=== PATIENT | female | born 1970 | race Caucasian/White ===

== ENCOUNTER 2016-12-06 18:43 | Emergency (ER) | payer OTHER ==
[2016-12-06] MEDS ORDERED: ONDANSETRON 4MG/2ML VIAL (J2405) As Ordered ONE (19:27)
[2016-12-06] MEDS ORDERED: KETOROLAC 30 MG/ML VIAL (J1885) As Ordered ONE (19:27)
[2016-12-06 19:32] LABS: MEAN CORPUSCULAR HEMOGLOBIN 31.2 pg (27.0-33.0); MEAN CORPUSCULAR HGB CONC 35.3 g/dl (32.0-36.5); MEAN CORPUSCULAR VOLUME 88.4 fl (80.0-96.0); RED CELL DISTRIBUTION WIDTH 12.1 % (11.5-14.5); WHITE BLOOD COUNT 8.7 K/mm3 (4.0-10.0)
[2016-12-06 19:57] LABS: ALBUMIN 4.4 GM/DL (3.2-5.2); ALBUMIN/GLOBULIN RATIO 1.69 (1.00-1.93); ALKALINE PHOSPHATASE 87 U/L (45-117); ANION GAP 8 MEQ/L (8-16); AST/SGOT 21 U/L (15-37); BILIRUBIN,TOTAL 0.5 MG/DL (0.2-1.0); BLOOD UREA NITROGEN 11 MG/DL (7-18); CALCIUM LEVEL 8.7 MG/DL (8.5-10.1); CARBON DIOXIDE LEVEL 24 MEQ/L (21-32); CHLORIDE LEVEL 110 MEQ/L (98-107); CREATININE FOR GFR 0.71 MG/DL (0.55-1.02); GLOMERULAR FILTRATION RATE > 60.0 (>58); POTASSIUM SERUM 4.4 MEQ/L (3.5-5.1); SODIUM LEVEL 142 MEQ/L (136-145)
[2016-12-06 20:09] LABS: MICROSCOPIC INDICATED? MAN YES (NO)
[2016-12-06 20:11] LABS: RBC, URINE 30-40 /hpf (0-3)
[2016-12-06 20:12] LABS: BACTERIA, URINE NONE SEEN; HYALINE CAST, URINE NONE SEEN /lpf (0-1); MICROSCOPIC EXAM UNSPUN; SQUAMOUS EPITHELIAL CELL URINE SMALL AMOUNT /hpf (SMALL AMT)
[2016-12-06 20:49] LABS: ALT/SGPT 34 U/L (12-78); GLUCOSE, FASTING 117 MG/DL (70-105)
--- NOTE | 2016-12-06 21:00 | REPUSA ---
Clinical history: bleeding. Findings: Real-time transabdominal ultrasound images of the pelvis were obtained. An anteverted uteru s is noted, measuring 10.5 x 5.3 x 6.1 cm. The uterus demonstrates normal echotexture and echogenicit y. The endometrial stripe measures 10 mm and is within normal limits. The right ovary measures 2.9 x 1.9 x 1.8 cm. The left ovary measures 3.5 x 2.2 x 3.4 cm. There are two left ovarian cysts, the large st measuring 2.4 x 1.7 x 1.7 cm. No adnexal masses are seen. Color Doppler flow is seen within both o varies. There is no evidence of free fluid. Impression: Left ovarian cyst. Otherwise unremarkable ultrasound examination of the pelvis.
[2016-12-06] MEDS ORDERED: PHENAZOPYRIDINE 100 MG TAB As Ordered ONE (21:39)
[2016-12-06] MEDS ORDERED: NITROFURANTOIN (MACROBID) 100 MG CAP As Ordered ONE (21:39)
--- NOTE | 2016-12-06 21:52 | EDDOCDS ---
Physician Documentation [facility] Name: Ronda White Age: 46 yrs Sex: Female : 1970 Arrival Date: 12/06/2016 Time: 18:43 Bed I7 / 29 Private MD: Violeta Powers Disposition: 12/06/16 21:39 Discharged to Home/Self Care. Impression: Dysmenorrhea, unspecified, Other ovarian cysts - Left x 2, Urinary tract infection, site not specified. - Condition is Stable. - Discharge Instructions: Urinary Tract Infection, Iiqu-vp-Altv, Ovarian Cyst, Mvxj-bg-[id number], Dysmenorrhea, Vyiq-uq-Jgjf. - Prescriptions for Naprosyn 500 mg Oral Tablet - take 1 tablet by ORAL route 2 times per day take with food; 30 tablet. promethazine 25 mg Oral Tablet - take 1 tablet by ORAL route every 6 hours As needed; 12 tablet. Pyridium 200 mg Oral Tablet - take 1 tablet by ORAL route every 8 hours for 3 days; 9 tablet. Macrobid 100 mg Oral Capsule - take 100 milligram by ORAL route every 12 hours for 10 days; 20 capsule. - Referral List Call for Appointment, Medication Reconciliation, Local Pharmacy Hours form. - Follow up: Violeta Powers; When: 1 - 2 days; Reason: Recheck today's complaints, Continuance of care. Follow up: Leatha Spivey; When: Call to arrange an appointment; Reason: Further diagnostic work-up, Recheck today's complaints, Continuance of care. - Problem is new. - Symptoms have improved. Historical: - Allergies: Clindamycin; Codeine Sulfate; SULFA (SULFONAMIDES); - Home Meds: 1. actemera weekly 2. Zoloft 50 mg Oral tab 1 tab once daily 3. Prilosec 20 mg oral cpDR once daily 4. Topamax 200 mg oral tab 5. BuSpar Unknown Oral daily - PMHx: GERD; Migraines; Rheumatoid Arthritis; Depression; - PSHx: left ankle fusion; Tubal ligation; right arm; - Social history: Smoking status: Patient states former smoker of tobacco. No barriers to communication noted, The patient speaks fluent Turkish, Speaks appropriately for age. - Family history: Not pertinent. - : The pt / caregiver states he / she is not on anticoagulants. Home medication list is obtained from the patient. - Exposure Risk Screening:: None identified. 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 3 in. (160.02 cm); Pain 8/10; 20:04 BP 126 / 71 RA Supine; Pulse 65; af2 20:04 BP 149 / 81 RA Sitting; Pulse 81; af2 20:04 BP 158 / 87 Standing; Pulse 76; af2 21:47 BP 135 / 73 LA Sitting (auto/lg); Pulse 71; Resp 22; Temp 97.9; Pulse Ox 99% on R/A; bnb Pain 0/10; 18:45 Body Mass Index 33.66 (86.18 kg, 160.02 cm) sew MDM: 18:54 Orthostatic VS ordered. sd1 18:55 CBC Ordered. EDMS 18:55 Type & Screen Ordered. EDMS 18:57 IV Saline Lock ordered. ef1 18:57 NS 0.9% 1000 ml IV at bolus once ordered. ef1 18:58 Complete Comphrensive Metabolic Ordered. EDMS 18:58 Ondansetron 4 mg IVP once ordered. ef1 18:58 ketorolac 30 mg IVP once ordered. ef1 18:59 UCG by Nursing ordered. ef1 18:59 Urine Culture Ordered. EDMS 19:15 -US Pelvic Non-Ob Complete Ordered. EDMS 19:17 DUPLEX SCAN LIMITED (DOPPLER)+US Ordered. EDMS 20:03 URINALYSIS MANUAL Ordered. EDMS 20:36 URINALYSIS MANUAL Reviewed. ef1 20:36 MICROSCOPIC, URINE Reviewed. ef1 20:36 CBC Reviewed. ef1 20:36 Type & Screen Reviewed. ef1 20:40 Financial registration complete. zo 20:40 [facility] [place] Payment Agreement was scanned into [employer] and attached to record. zo 21:32 Complete Comphrensive Metabolic Reviewed. ef1 21:32 -US Pelvic Non-Ob Complete Reviewed. ef1 21:35 Phenazopyridine 200 mg PO once ordered. ef1 21:35 Nitrofurantoin 100 mg PO once ordered. ef1 Point of Care Testing: Urine : 19:52 hCG Reading: Negative; Control Reading: Positive; af2 Ranges: Administered Medications: 19:35 Drug: NS 0.9% 1000 ml [sodium chloride 0.9 % intravenous solution] Route: IV; Rate: af2 bolus; Site: right hand; 19:35 Drug: Ondansetron 4 mg [ondansetron HCl 2 mg/mL intravenous solution (2 mL)] Route: af2 IVP; Site: right hand; 19:35 Not Given (Patient Refused): ketorolac 30 mg IVP once af2 21:49 Not Given (Patient Refused): Phenazopyridine 200 mg PO once ck1 21:49 Not Given (Patient Refused): Nitrofurantoin 100 mg PO once ck1 Signatures: Dispatcher [employer] EDMS Skyla Colbert MD MD sd1 Jamal Sierra RN RN mlb1 Naty Pimentel RN RN ck1 Tere Dawn Erica PA-C PA-C ef1 Daxa Briggs RN RN af2 The chart was reviewed and I authenticate all verbal orders and agree with the evaluation and treatment provided.Corrections: (The following items were deleted from the chart) 19:00 18:55 HCG, QUALITATIVE+LAB ordered. EDMS EDMS 20:02 18:59 URINALYSIS+LAB ordered. EDMS EDMS Attachments: 20:40 [facility] Payment Agreement zo MTDD
--- NOTE | 2016-12-06 21:52 | EDDOCDS ---
Nurse's Notes [facility] Name: Ronda White Age: 46 yrs Sex: Female : 1970 Arrival Date: 12/06/2016 Time: 18:43 Bed I7 29 Private MD: Violeta Powers Diagnosis: Dysmenorrhea, unspecified;Other ovarian cysts-Left x 2;Urinary tract infection, site not specified Presentation: 12/06 18:51 Presenting complaint: Patient states: Heavy vaginal bleeding and cramping began at 0200 mlb1 this am. Risk factors: The patient reports no loss of conciousness prior to arrival. This patient has not had a hysterectomy. This patient has not begun menopause. Adult Sepsis Screening: The patient does not have new or worsening altered mentation. Patient's respiratory rate is less than 22. Systolic blood pressure is greater than 100. Patient has a qSOFA score of 0- Negative Sepsis Screen. Suicide/Homicide risk assessment- the patient denies having any suicidal and/or homicidal ideations and does not present with any other emotional, behavioral or mental health complaints. Status: Patient is not a ward service supervisor or dependent. Transition of care: patient was not received from another setting of care. 18:51 Acuity: SHERITA Level 3 mlb1 18:51 Method Of Arrival: Walkin/Carried/Asstd mlb1 Triage Assessment: 18:55 General: Appears distressed, Behavior is appropriate for age, cooperative. Pain: mlb1 Location: pelvis Pain currently is 7 out of 10 on a pain scale. At worst was 10 out of 10 on a pain scale. : Reports vaginal bleeding that is with clots heavy flow. 21:50 HIV screening NA for this visit Offered previously. 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 actemera weekly 2. Zoloft 50 mg Oral tab 1 tab once daily 3. Prilosec 20 mg oral cpDR once daily 4. Topamax 200 mg oral tab 5. BuSpar Unknown Oral daily - PMHx: GERD; Migraines; Rheumatoid Arthritis; Depression; - PSHx: left ankle fusion; Tubal ligation; right arm; - Social history: Smoking status: Patient states former smoker of tobacco. No barriers to communication noted, The patient speaks fluent Egyptian, Speaks appropriately for age. - Family history: Not pertinent. - : The pt / caregiver states he / she is not on anticoagulants. Home medication list is obtained from the patient. - Exposure Risk Screening:: None identified. Screenin:25 Screening information is obtained from the patient. Fall risk: No risks identified. af2 Assistance ADL's: requires no assistance with activities of daily living. Abuse/DV Screen: The patient / caregiver reports he/she is: not in a situation that causes fear, pain or injury. Nutritional screening: No deficits noted. Advance Directives: Currently, there is no health care proxy. home support is adequate. Assessment: 19:22 General: Appears uncomfortable, Behavior is crying. Pain: Location: pelvis Pain af2 currently is 8 out of 10 on a pain scale. : Last void at 19:23. Reports vaginal bleeding that is bright red heavy flow states that she is going through 6 tampons per hour. Derm: Skin is normal. 20:03 General: pt assisted to bathroom, provided with more pads and linens changed.. af2 21:12 General: Appears in no apparent distress, Behavior is cooperative, pt seated in upright af2 position, rr even and unlabored. ivf bolus completed at this time. pt continues to report bleeding.. 21:51 General: Appears in no apparent distress, comfortable, Behavior is appropriate for age, ck1 cooperative. Pain: Denies pain. Respiratory: Respiratory effort is unlabored, Respiratory pattern is regular, symmetrical. : Denies burning with urination, urinary frequency. Derm: Skin is normal. Vital Signs: 18:45 BP 145 / 78; Pulse 86; Resp 16; Temp 97.5(O); Pulse Ox 99% on R/A; Weight 86.18 kg; sew Height 5 ft. 3 in. (160.02 cm); Pain 8/10; 20:04 BP 126 / 71 RA Supine; Pulse 65; af2 20:04 BP 149 / 81 RA Sitting; Pulse 81; af2 20:04 BP 158 / 87 Standing; Pulse 76; af2 21:47 BP 135 / 73 LA Sitting (auto/lg); Pulse 71; Resp 22; Temp 97.9; Pulse Ox 99% on R/A; bnb Pain 0/10; 18:45 Body Mass Index 33.66 (86.18 kg, 160.02 cm) [facility] [place]: 18:45 Log In Time: December 06, 2016 at 18:42. sew 18:45 RN notified that patient meets Red Flag criteria. [facility] Course: 18:[address]yla [address]. sew 18:44 Patient moved to Waiting sew 18:45 Violeta Powers is Private Physician. sew 18:[address]yla [address]. sew 18:49 Patient moved to Pre RCE sew 18:51 Patient visited by Jamal Sierra, ARJUN. mlb1 18:51 Patient moved to I7 / mlb1 18:52 Triage Initiated mlb1 18:55 Patient visited by Jamal Sierra, ARJUN. mlb1 18:57 Chelsea Sorenson PA-C is [facility]. ef1 18:57 Skyla Colbert MD is Attending Physician. ef1 18:57 Patient visited by Chelsea Sorenson PA-C. ef1 19:22 Complete Comphrensive Metabolic Sent. af2 19:22 Type & Screen Sent. af2 19:22 CBC Sent. af2 19:24 The patient / caregiver is instructed regarding the plan of care and ED course. Patient af2 has correct armband on for positive identification. Placed in gown. 19:24 Inserted saline lock: 20 gauge in right hand and blood collected. The patient tolerated af2 the procedure well. 19:29 Patient visited by Chelsea Sroenson PA-C. ef1 19:35 Patient visited by Daxa Briggs RN. af2 19:35 Urine Culture Sent. af2 19:53 Patient visited by Daxa Briggs RN. af2 20:05 Patient visited by Daxa Briggs RN. af2 20:35 Patient visited by Chelsea Sorenson PA-C. ef1 20:40 [facility] [place] [place] Agreement was scanned into [employer] and attached to record. zo 21:04 -US Pelvic Non-Ob Complete Returned. EDMS 21:12 Patient visited by Daxa Briggs RN. af2 21:13 Patient visited by Daxa Briggs RN. af2 21:33 Patient visited by Chelsea Sorenson PA-C. ef1 21:39 Violeta Powers is Referral Physician. ef1 21:39 Leatha Spivey MD is Referral Physician. ef1 21:48 Patient visited by Violet Renae PCA. bnb 21:49 Discontinued lock intact, bleeding controlled, pressure dressing applied, No ck1 redness/swelling at site. No procedures done that require assistance. Administered Medications: 19:35 Drug: NS 0.9% 1000 ml [sodium chloride 0.9 % intravenous solution] Route: IV; Rate: af2 bolus; Site: right hand; 19:35 Drug: Ondansetron 4 mg [ondansetron HCl 2 mg/mL intravenous solution (2 mL)] Route: af2 IVP; Site: right hand; 19:35 Not Given (Patient Refused): ketorolac 30 mg IVP once af2 21:49 Not Given (Patient Refused): Phenazopyridine 200 mg PO once ck1 21:49 Not Given (Patient Refused): Nitrofurantoin 100 mg PO once ck1 Point of Care Testing: Urine : 19:52 hCG Reading: Negative; Control Reading: Positive; af2 Ranges: Order Results: Lab Order: CBC; SPEC'M 12/06/16 19:01 Test: WHITE BLOOD COUNT; Value: 8.7; Range: 4.0-10.0; Units: K/mm3; Status: F Test: RED BLOOD COUNT; Value: 4.09; Range: 4.00-5.40; Units: M/mm3; Status: F Test: HEMOGLOBIN; Value: 12.8; Range: 12.0-16.0; Units: g/dl; Status: F Test: HEMATOCRIT; Value: 36.1; Range: 36.0-47.0; Units: %; Status: F Test: MEAN CORPUSCULAR VOLUME; Value: 88.4; Range: 80.0-96.0; Units: fl; Status: F Test: MEAN CORPUSCULAR HEMOGLOBIN; Value: 31.2; Range: 27.0-33.0; Units: pg; Status: F Test: MEAN CORPUSCULAR HGB CONC; Value: 35.3; Range: 32.0-36.5; Units: g/dl; Status: F Test: RED CELL DISTRIBUTION WIDTH; Value: 12.1; Range: 11.5-14.5; Units: %; Status: F Test: PLATELET COUNT, AUTOMATED; Value: 285; Range: 150-450; Units: k/mm3; Status: F Lab Order: Type & Screen; SPEC'M 12/06/16 19:01 Test: BLOOD TYPE; Value: O POS; Status: F Test: AB SCREEN (INDIRECT ANGELICA)GEL; Value: NEGATIVE; Status: F Lab Order: Complete Comphrensive Metabolic; SPEC'M 12/06/16 19:01 Test: GLUCOSE, FASTING; Value: 117; Range: 70-105; Abnormal: Above high normal; Units: MG/DL; Status: F Test: BLOOD UREA NITROGEN; Value: 11; Range: 7-18; Units: MG/DL; Status: F Test: CREATININE FOR GFR; Value: 0.71; Range: 0.55-1.02; Units: MG/DL; Status: F Test: GLOMERULAR FILTRATION RATE; Value: > 60.0; Range: >58; Status: F Test: SODIUM LEVEL; Value: 142; Range: 136-145; Units: MEQ/L; Status: F Test: POTASSIUM SERUM; Value: 4.4; Range: 3.5-5.1; Units: MEQ/L; Status: F Test: CHLORIDE LEVEL; Value: 110; Range: 98-107; Abnormal: Above high normal; Units: MEQ/L; Status: F Test: CARBON DIOXIDE LEVEL; Value: 24; Range: 21-32; Units: MEQ/L; Status: F Test: ANION GAP; Value: 8; Range: 8-16; Units: MEQ/L; Status: F Test: CALCIUM LEVEL; Value: 8.7; Range: 8.5-10.1; Units: MG/DL; Status: F Test: AST/SGOT; Value: 21; Range: 15-37; Units: U/L; Status: F Test: ALT/SGPT; Value: 34; Range: 12-78; Units: U/L; Status: F Test: ALKALINE PHOSPHATASE; Value: 87; Range: 45-117; Units: U/L; Status: F Test: BILIRUBIN,TOTAL; Value: 0.5; Range: 0.2-1.0; Units: MG/DL; Status: F Test: TOTAL PROTEIN; Value: 7.0; Range: 6.4-8.2; Units: GM/DL; Status: F Test: ALBUMIN; Value: 4.4; Range: 3.2-5.2; Units: GM/DL; Status: F Test: ALBUMIN/GLOBULIN RATIO; Value: 1.69; Range: 1.00-1.93; Status: F Test Note: ; Testing was performed on a lipemic specimen. Suggest recollection of a FASTING specimen for more accurate test results. Lab Order: URINALYSIS MANUAL; SPEC'M 12/06/16 19:01 Test: APPEARANCE, URINE MANUAL; Value: CLOUDY; Range: CLEAR; Abnormal: Above high normal; Status: F Test: COLOR, URINE MANUAL; Value: RED; Range: YELLOW; Abnormal: Above high normal; Status: F Test: PH,URINE MAN; Value: 5.0; Range: 5.0 - 9.0; Units: UNITS; Status: F Test: SPECIFIC GRAVITY,URINE MANUAL; Value: 1.030; Range: 1.002-1.035; Status: F Test: PROTEIN, URINE MANUAL; Value: 1+; Range: NEGATIVE; Abnormal: Above high normal; Units: mg/dL; Status: F Test: GLUCOSE, URINE (UA) MANUAL; Value: NEGATIVE; Range: NEGATIVE; Units: mg/dL; Status: F Test: KETONE, URINE MANUAL; Value: NEGATIVE; Range: NEGATIVE; Units: mg/dL; Status: F Test: UROBILINOGEN, URINE MANUAL; Value: NORMAL; Range: NORMAL; Units: mg/dl; Status: F Test: BILIRUBIN, URINE MANUAL; Value: NEGATIVE; Range: NEGATIVE; Status: F Test: NITRITE, URINE MANUAL; Value: NEGATIVE; Range: NEGATIVE; Status: F Test: LEUKOCYTE ESTERASE, URINE MAN; Value: POSITIVE; Range: NEGATIVE; Abnormal: Above high normal; Status: F Test: BLOOD URINE MANUAL; Value: POSITIVE; Range: NEGATIVE; Abnormal: Above high normal; Status: F Lab Order: MICROSCOPIC, URINE; SPEC'M 12/06/16 19:01 Test: WBC, URINE; Value: 3-5; Range: 0-3; Abnormal: Above high normal; Units: /hpf; Status: F Test: RBC, URINE; Value: 30-40; Range: 0-3; Abnormal: Above high normal; Units: /hpf; Status: F Test: SQUAMOUS EPITHELIAL CELL URINE; Value: SMALL AMOUNT; Range: SMALL AMT; Units: /hpf; Status: F Test: BACTERIA, URINE; Value: NONE SEEN; Range: NONE; Status: F Test: HYALINE CAST, URINE; Value: NONE SEEN; Range: 0-1; Units: /lpf; Status: F Test: MICROSCOPIC EXAM; Status: I Test: MUCUS, URINE; Value: SMALL AMOUNT; Range: NEGATIVE; Abnormal: Above high normal; Status: F Test: MICROSCOPIC EXAM; Value: UNSPUN; Status: F Radiology Order: -US Pelvic Non-Ob Complete Test: -US Pelvic Non-Ob Complete REASON FOR EXAMINATION: Adnexal Pain r/o Torsion; ; Clinical history: bleeding.; Findings: Real-time transabdominal ultrasound images of the pelvis were obtained. An anteverted uteru; s is noted, measuring 10.5 x 5.3 x 6.1 cm. The uterus demonstrates normal echotexture and echogenicit; y. The endometrial stripe measures 10 mm and is within normal limits. The right ovary measures 2.9 x; 1.9 x 1.8 cm. The left ovary measures 3.5 x 2.2 x 3.4 cm. There are two left ovarian cysts, the large; st measuring 2.4 x 1.7 x 1.7 cm. No adnexal masses are seen. Color Doppler flow is seen within both o; varies. There is no evidence of free fluid.; Impression: Left ovarian cyst. Otherwise unremarkable ultrasound examination of the pelvis.; ; Outcome: 21:39 Discharge ordered by Provider. ef1 21:50 Discharge Assessment: Patient awake, alert and oriented x 3. No cognitive and/or ck1 functional deficits noted. Patient verbalized understanding of disposition instructions. patient administered narcotics - no. The following High Risk Discharge criteria are identified: None. Discharged to home ambulatory, with family. Condition: stable. Discharge instructions given to patient, Instructed on discharge instructions, follow up and referral plans. medication usage, Demonstrated understanding of instructions, medications, Pt was receptive of discharge instructions/ teaching. Prescriptions given X 4. Ultrasound Study completed. Property :Personal belongings accompany Pt. 21:51 Patient left the ED. ck1 Signatures: Dispatcher [facility] Jamal Sierra RN RN mlb1 Naty Pimentel RN RN ck1 Tere Dawn Erica, PA-C PA-C ef1 Skyla aWy AmberRN RN af2 Violet Renae, VP PRODUCT MANAGEMENT VP PRODUCT MANAGEMENT bnb Corrections: (The following items were deleted from the chart) 20:02 19:35 URINALYSIS+LAB sent. af2 EDMS MTDD
--- NOTE | 2016-12-08 22:53 | EDDOCDS ---
Physician Documentation [facility] Name: Ronda White Age: 46 yrs Sex: Female : 1970 Arrival Date: 12/06/2016 Time: 18:43 Bed I7 / 29 Private MD: Violeta Powers Disposition: 12/06/16 21:39 Discharged to Home/Self Care. Impression: Dysmenorrhea, unspecified, Other ovarian cysts - Left x 2, Urinary tract infection, site not specified. - Condition is Stable. - Discharge Instructions: Urinary Tract Infection, Qvnp-ua-[id number], Ovarian Cyst, Evgo-tn-Pbtg, Dysmenorrhea, Xqfy-pl-Ilcp. - Prescriptions for Naprosyn 500 mg Oral Tablet - take 1 tablet by ORAL route 2 times per day take with food; 30 tablet. promethazine 25 mg Oral Tablet - take 1 tablet by ORAL route every 6 hours As needed; 12 tablet. Pyridium 200 mg Oral Tablet - take 1 tablet by ORAL route every 8 hours for 3 days; 9 tablet. Macrobid 100 mg Oral Capsule - take 100 milligram by ORAL route every 12 hours for 10 days; 20 capsule. - Referral List Call for Appointment, Medication Reconciliation, Local Pharmacy Hours form. - Follow up: Violeta Powers; When: 1 - 2 days; Reason: Recheck today's complaints, Continuance of care. Follow up: Leatha Spivey; When: Call to arrange an appointment; Reason: Further diagnostic work-up, Recheck today's complaints, Continuance of care. - Problem is new. - Symptoms have improved. Historical: - Allergies: Clindamycin; Codeine Sulfate; SULFA (SULFONAMIDES); - Home Meds: 1. actemera weekly 2. Zoloft 50 mg Oral tab 1 tab once daily 3. Prilosec 20 mg oral cpDR once daily 4. Topamax 200 mg oral tab 5. BuSpar Unknown Oral daily - PMHx: GERD; Migraines; Rheumatoid Arthritis; Depression; - PSHx: left ankle fusion; Tubal ligation; right arm; - Social history: Smoking status: Patient states former smoker of tobacco. No barriers to communication noted, The patient speaks fluent Frisian, Speaks appropriately for age. - Family history: Not pertinent. - : The pt / caregiver states he / she is not on anticoagulants. Home medication list is obtained from the patient. - Exposure Risk Screening:: None identified. 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 3 in. (160.02 cm); Pain 8/10; 20:04 BP 126 / 71 RA Supine; Pulse 65; af2 20:04 BP 149 / 81 RA Sitting; Pulse 81; af2 20:04 BP 158 / 87 Standing; Pulse 76; af2 21:47 BP 135 / 73 LA Sitting (auto/lg); Pulse 71; Resp 22; Temp 97.9; Pulse Ox 99% on R/A; bnb Pain 0/10; 18:45 Body Mass Index 33.66 (86.18 kg, 160.02 cm) sew MDM: 18:54 Orthostatic VS ordered. sd1 18:55 CBC Ordered. EDMS 18:55 Type & Screen Ordered. EDMS 18:57 IV Saline Lock ordered. ef1 18:57 NS 0.9% 1000 ml IV at bolus once ordered. ef1 18:58 Complete Comphrensive Metabolic Ordered. EDMS 18:58 Ondansetron 4 mg IVP once ordered. ef1 18:58 ketorolac 30 mg IVP once ordered. ef1 18:59 UCG by Nursing ordered. ef1 18:59 Urine Culture Ordered. EDMS 19:15 -US Pelvic Non-Ob Complete Ordered. EDMS 19:17 DUPLEX SCAN LIMITED (DOPPLER)+US Ordered. EDMS 20:03 URINALYSIS MANUAL Ordered. EDMS 20:36 URINALYSIS MANUAL Reviewed. ef1 20:36 MICROSCOPIC, URINE Reviewed. ef1 20:36 CBC Reviewed. ef1 20:36 Type & Screen Reviewed. ef1 20:40 Financial registration complete. zo 20:40 [facility] [place] Payment Agreement was scanned into [employer] and attached to record. zo 21:32 Complete Comphrensive Metabolic Reviewed. ef1 21:32 -US Pelvic Non-Ob Complete Reviewed. ef1 21:35 Phenazopyridine 200 mg PO once ordered. ef1 21:35 Nitrofurantoin 100 mg PO once ordered. ef1 12/07 11:13 T-Sheet-- Draft Copy was scanned into [employer] and attached to record. gb 11:14 Radiology Report was scanned into [employer] and attached to record. gb Point of Care Testing: Urine : 12/06 19:52 hCG Reading: Negative; Control Reading: Positive; af2 Ranges: Administered Medications: 19:35 Drug: NS 0.9% 1000 ml [sodium chloride 0.9 % intravenous solution] Route: IV; Rate: af2 bolus; Site: right hand; 19:35 Drug: Ondansetron 4 mg [ondansetron HCl 2 mg/mL intravenous solution (2 mL)] Route: af2 IVP; Site: right hand; 19:35 Not Given (Patient Refused): ketorolac 30 mg IVP once af2 21:49 Not Given (Patient Refused): Phenazopyridine 200 mg PO once ck1 21:49 Not Given (Patient Refused): Nitrofurantoin 100 mg PO once ck1 Signatures: Dispatcher [employer] EDMS Skyla Colbert MD MD sd1 Latanya Rose, Reg Reg Jamal Gates, RN RN mlb1 Naty Pimentel RN RN ck1 Tere Dawn Erica PAHuy PA-C ef1 Daxa Briggs,RN RN af2 The chart was reviewed and I authenticate all verbal orders and agree with the evaluation and treatment provided.Corrections: (The following items were deleted from the chart) 19:00 18:55 HCG, QUALITATIVE+LAB ordered. EDMS EDMS 20:02 18:59 URINALYSIS+LAB ordered. EDMS EDMS Attachments: 20:40 [facility] [place] Payment Agreement zo 12/07 11:13 T-Sheet-- Draft Copy gb Chart Complete MTDD
--- NOTE | 2016-12-08 22:53 | EDDOCDS ---
Physician Documentation [facility] Name: Ronda White Age: 46 yrs Sex: Female : 1970 Arrival Date: 12/06/2016 Time: 18:43 Bed I7 / 29 Private MD: Violeta Powers Disposition: 12/06/16 21:39 Discharged to Home/Self Care. Impression: Dysmenorrhea, unspecified, Other ovarian cysts - Left x 2, Urinary tract infection, site not specified. - Condition is Stable. - Discharge Instructions: Urinary Tract Infection, [id number]-kv-[id number], Ovarian Cyst, [id number], Dysmenorrhea, [id number]. - Prescriptions for Naprosyn 500 mg Oral Tablet - take 1 tablet by ORAL route 2 times per day take with food; 30 tablet. promethazine 25 mg Oral Tablet - take 1 tablet by ORAL route every 6 hours As needed; 12 tablet. Pyridium 200 mg Oral Tablet - take 1 tablet by ORAL route every 8 hours for 3 days; 9 tablet. Macrobid 100 mg Oral Capsule - take 100 milligram by ORAL route every 12 hours for 10 days; 20 capsule. - Referral List Call for Appointment, Medication Reconciliation, Local Pharmacy Hours form. - Follow up: Violeta Powers; When: 1 - 2 days; Reason: Recheck today's complaints, Continuance of care. Follow up: Leatha Spivey; When: Call to arrange an appointment; Reason: Further diagnostic work-up, Recheck today's complaints, Continuance of care. - Problem is new. - Symptoms have improved. Historical: - Allergies: Clindamycin; Codeine Sulfate; SULFA (SULFONAMIDES); - Home Meds: 1. actemera weekly 2. Zoloft 50 mg Oral tab 1 tab once daily 3. Prilosec 20 mg oral cpDR once daily 4. Topamax 200 mg oral tab 5. BuSpar Unknown Oral daily - PMHx: GERD; Migraines; Rheumatoid Arthritis; Depression; - PSHx: left ankle fusion; Tubal ligation; right arm; - Social history: Smoking status: Patient states former smoker of tobacco. No barriers to communication noted, The patient speaks fluent Czech, Speaks appropriately for age. - Family history: Not pertinent. - : The pt / caregiver states he / she is not on anticoagulants. Home medication list is obtained from the patient. - Exposure Risk Screening:: None identified. 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 3 in. (160.02 cm); Pain 8/10; 20:04 BP 126 / 71 RA Supine; Pulse 65; af2 20:04 BP 149 / 81 RA Sitting; Pulse 81; af2 20:04 BP 158 / 87 Standing; Pulse 76; af2 21:47 BP 135 / 73 LA Sitting (auto/lg); Pulse 71; Resp 22; Temp 97.9; Pulse Ox 99% on R/A; bnb Pain 0/10; 18:45 Body Mass Index 33.66 (86.18 kg, 160.02 cm) sew MDM: 18:54 Orthostatic VS ordered. sd1 18:55 CBC Ordered. EDMS 18:55 Type & Screen Ordered. EDMS 18:57 IV Saline Lock ordered. ef1 18:57 NS 0.9% 1000 ml IV at bolus once ordered. ef1 18:58 Complete Comphrensive Metabolic Ordered. EDMS 18:58 Ondansetron 4 mg IVP once ordered. ef1 18:58 ketorolac 30 mg IVP once ordered. ef1 18:59 UCG by Nursing ordered. ef1 18:59 Urine Culture Ordered. EDMS 19:15 -US Pelvic Non-Ob Complete Ordered. EDMS 19:17 DUPLEX SCAN LIMITED (DOPPLER)+US Ordered. EDMS 20:03 URINALYSIS MANUAL Ordered. EDMS 20:36 URINALYSIS MANUAL Reviewed. ef1 20:36 MICROSCOPIC, URINE Reviewed. ef1 20:36 CBC Reviewed. ef1 20:36 Type & Screen Reviewed. ef1 20:40 Financial registration complete. zo 20:40 [facility] Payment Agreement was scanned into [employer] and attached to record. zo 21:32 Complete Comphrensive Metabolic Reviewed. ef1 21:32 -US Pelvic Non-Ob Complete Reviewed. ef1 21:35 Phenazopyridine 200 mg PO once ordered. ef1 21:35 Nitrofurantoin 100 mg PO once ordered. ef1 12/07 11:13 T-Sheet-- Draft Copy was scanned into [employer] and attached to record. gb 11:14 Radiology Report was scanned into [employer] and attached to record. gb Point of Care Testing: Urine : 12/06 19:52 hCG Reading: Negative; Control Reading: Positive; af2 Ranges: Administered Medications: 19:35 Drug: NS 0.9% 1000 ml [sodium chloride 0.9 % intravenous solution] Route: IV; Rate: af2 bolus; Site: right hand; 19:35 Drug: Ondansetron 4 mg [ondansetron HCl 2 mg/mL intravenous solution (2 mL)] Route: af2 IVP; Site: right hand; 19:35 Not Given (Patient Refused): ketorolac 30 mg IVP once af2 21:49 Not Given (Patient Refused): Phenazopyridine 200 mg PO once ck1 21:49 Not Given (Patient Refused): Nitrofurantoin 100 mg PO once ck1 Signatures: Dispatcher [employer] EDMS Skyla Colbert MD MD sd1 Latanya Rose, Reg Reg Jamal Gates, RN RN mlb1 Naty Pimentel RN RN ck1 Tere Dawn Erica PAHuy PA-C ef1 Daxa Briggs,RN RN af2 The chart was reviewed and I authenticate all verbal orders and agree with the evaluation and treatment provided.Corrections: (The following items were deleted from the chart) 19:00 18:55 HCG, QUALITATIVE+LAB ordered. EDMS EDMS 20:02 18:59 URINALYSIS+LAB ordered. EDMS EDMS Attachments: 20:40 [facility] Payment Agreement zo 12/07 11:13 T-Sheet-- Draft Copy gb Chart Complete MTDD
--- NOTE | 2016-12-08 22:53 | EDDOCDS ---
Nurse's Notes [facility] Name: Ronda White Age: 46 yrs Sex: Female : 1970 Arrival Date: 12/06/2016 Time: 18:43 Bed I7 29 Private MD: Violeta Powers Diagnosis: Dysmenorrhea, unspecified;Other ovarian cysts-Left x 2;Urinary tract infection, site not specified Presentation: 12/06 18:51 Presenting complaint: Patient states: Heavy vaginal bleeding and cramping began at 0200 mlb1 this am. Risk factors: The patient reports no loss of conciousness prior to arrival. This patient has not had a hysterectomy. This patient has not begun menopause. Adult Sepsis Screening: The patient does not have new or worsening altered mentation. Patient's respiratory rate is less than 22. Systolic blood pressure is greater than 100. Patient has a qSOFA score of 0- Negative Sepsis Screen. Suicide/Homicide risk assessment- the patient denies having any suicidal and/or homicidal ideations and does not present with any other emotional, behavioral or mental health complaints. 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 Transition of care: patient was not received from another setting of care. 18:51 Acuity: SHERITA Level 3 mlb1 18:51 Method Of Arrival: Walkin/Carried/Asstd mlb1 Triage Assessment: 18:55 General: Appears distressed, Behavior is appropriate for age, cooperative. Pain: mlb1 Location: pelvis Pain currently is 7 out of 10 on a pain scale. At worst was 10 out of 10 on a pain scale. : Reports vaginal bleeding that is with clots heavy flow. 21:50 HIV screening NA for this visit Offered previously. 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 actemera weekly 2. Zoloft 50 mg Oral tab 1 tab once daily 3. Prilosec 20 mg oral cpDR once daily 4. Topamax 200 mg oral tab 5. BuSpar Unknown Oral daily - PMHx: GERD; Migraines; Rheumatoid Arthritis; Depression; - PSHx: left ankle fusion; Tubal ligation; right arm; - Social history: Smoking status: Patient states former smoker of tobacco. No barriers to communication noted, The patient speaks fluent [place], Speaks appropriately for age. - Family history: Not pertinent. - : The pt / caregiver states he / she is not on anticoagulants. Home medication list is obtained from the patient. - Exposure Risk Screening:: None identified. Screenin:25 Screening information is obtained from the patient. Fall risk: No risks identified. af2 Assistance ADL's: requires no assistance with activities of daily living. Abuse/DV Screen: The patient / caregiver reports he/she is: not in a situation that causes fear, pain or injury. Nutritional screening: No deficits noted. Advance Directives: Currently, there is no health care proxy. home support is adequate. Assessment: 19:22 General: Appears uncomfortable, Behavior is crying. Pain: Location: pelvis Pain af2 currently is 8 out of 10 on a pain scale. : Last void at 19:23. Reports vaginal bleeding that is bright red heavy flow states that she is going through 6 tampons per hour. Derm: Skin is normal. 20:03 General: pt assisted to bathroom, provided with more pads and linens changed.. af2 21:12 General: Appears in no apparent distress, Behavior is cooperative, pt seated in upright af2 position, rr even and unlabored. ivf bolus completed at this time. pt continues to report bleeding.. 21:51 General: Appears in no apparent distress, comfortable, Behavior is appropriate for age, ck1 cooperative. Pain: Denies pain. Respiratory: Respiratory effort is unlabored, Respiratory pattern is regular, symmetrical. : Denies burning with urination, urinary frequency. Derm: Skin is normal. Vital Signs: 18:45 BP 145 / 78; Pulse 86; Resp 16; Temp 97.5(O); Pulse Ox 99% on R/A; Weight 86.18 kg; sew Height 5 ft. 3 in. (160.02 cm); Pain 8/10; 20:04 BP 126 / 71 RA Supine; Pulse 65; af2 20:04 BP 149 / 81 RA Sitting; Pulse 81; af2 20:04 BP 158 / 87 Standing; Pulse 76; af2 21:47 BP 135 / 73 LA Sitting (auto/lg); Pulse 71; Resp 22; Temp 97.9; Pulse Ox 99% on R/A; bnb Pain 0/10; 18:45 Body Mass Index 33.66 (86.18 kg, 160.02 cm) [facility] Vitals: 18:45 Log In Time: December 06, 2016 at 18:42. sew 18:45 RN notified that patient meets Red Flag criteria. [facility] ED Course: 18:[address]yla [address]. sew 18:44 Patient moved to Waiting sew 18:45 Violeta Powers is Private Physician. sew 18:[address]yla [address]. sew 18:49 Patient moved to Pre RCE sew 18:51 Patient visited by Jamal Sierra, ARJUN. mlb1 18:51 Patient moved to I7 / mlb1 18:52 Triage Initiated mlb1 18:55 Patient visited by aJmal Sierra, ARJUN. mlb1 18:57 [facility] ef1 18:57 Skyla Colbert MD is Attending Physician. ef1 18:57 Patient visited by Chelsea Sorenson PA-C. ef1 19:22 Complete Comphrensive Metabolic Sent. af2 19:22 Type & Screen Sent. af2 19:22 CBC Sent. af2 19:24 The patient / caregiver is instructed regarding the plan of care and ED course. Patient af2 has correct armband on for positive identification. Placed in gown. 19:24 Inserted saline lock: 20 gauge in right hand and blood collected. The patient tolerated af2 the procedure well. 19:29 Patient visited by Chelsea Sorenson PA-C. ef1 19:35 Patient visited by Daxa Briggs RN. af2 19:35 Urine Culture Sent. af2 19:53 Patient visited by Daxa Briggs RN. af2 20:05 Patient visited by Daxa Briggs RN. af2 20:35 Patient visited by Chelsea Sorenson PA-C. ef1 20:40 [facility] Payment Agreement was scanned into [employer] and attached to record. zo 21:04 -US Pelvic Non-Ob Complete Returned. EDMS 21:12 Patient visited by Daxa Briggs RN. af2 21:13 Patient visited by Daxa Briggs RN. af2 21:33 Patient visited by Chelsea Sorenson PA-C. ef1 21:39 Violeta Powers is Referral Physician. ef1 21:39 Leatha Spivey MD is Referral Physician. ef1 21:48 Patient visited by Violet Renae PCA. bnb 21:49 Discontinued lock intact, bleeding controlled, pressure dressing applied, No ck1 redness/swelling at site. No procedures done that require assistance. 12/07 11:13 T-Sheet-- Draft Copy was scanned into [employer] and attached to record. gb 11:14 Radiology Report was scanned into [employer] and attached to record. gb Administered Medications: 12/06 19:35 Drug: NS 0.9% 1000 ml [sodium chloride 0.9 % intravenous solution] Route: IV; Rate: af2 bolus; Site: right hand; 19:35 Drug: Ondansetron 4 mg [ondansetron HCl 2 mg/mL intravenous solution (2 mL)] Route: af2 IVP; Site: right hand; 19:35 Not Given (Patient Refused): ketorolac 30 mg IVP once af2 21:49 Not Given (Patient Refused): Phenazopyridine 200 mg PO once ck1 21:49 Not Given (Patient Refused): Nitrofurantoin 100 mg PO once ck1 Point of Care Testing: Urine : 19:52 hCG Reading: Negative; Control Reading: Positive; af2 Ranges: Order Results: Lab Order: CBC; SPEC'M 12/06/16 19:01 Test: WHITE BLOOD COUNT; Value: 8.7; Range: 4.0-10.0; Units: K/mm3; Status: F Test: RED BLOOD COUNT; Value: 4.09; Range: 4.00-5.40; Units: M/mm3; Status: F Test: HEMOGLOBIN; Value: 12.8; Range: 12.0-16.0; Units: g/dl; Status: F Test: HEMATOCRIT; Value: 36.1; Range: 36.0-47.0; Units: %; Status: F Test: MEAN CORPUSCULAR VOLUME; Value: 88.4; Range: 80.0-96.0; Units: fl; Status: F Test: MEAN CORPUSCULAR HEMOGLOBIN; Value: 31.2; Range: 27.0-33.0; Units: pg; Status: F Test: MEAN CORPUSCULAR HGB CONC; Value: 35.3; Range: 32.0-36.5; Units: g/dl; Status: F Test: RED CELL DISTRIBUTION WIDTH; Value: 12.1; Range: 11.5-14.5; Units: %; Status: F Test: PLATELET COUNT, AUTOMATED; Value: 285; Range: 150-450; Units: k/mm3; Status: F Lab Order: Type & Screen; SPEC'M 12/06/16 19: Test: BLOOD TYPE; Value: O POS; Status: F Test: AB SCREEN (INDIRECT ANGELICA)GEL; Value: NEGATIVE; Status: F Lab Order: Complete Comphrensive Metabolic; SPEC'M 12/06/16 19: Test: GLUCOSE, FASTING; Value: 117; Range: 70-105; Abnormal: Above high normal; Units: MG/DL; Status: F Test: BLOOD UREA NITROGEN; Value: 11; Range: 7-18; Units: MG/DL; Status: F Test: CREATININE FOR GFR; Value: 0.71; Range: 0.55-1.02; Units: MG/DL; Status: F Test: GLOMERULAR FILTRATION RATE; Value: > 60.0; Range: >58; Status: F Test: SODIUM LEVEL; Value: 142; Range: 136-145; Units: MEQ/L; Status: F Test: POTASSIUM SERUM; Value: 4.4; Range: 3.5-5.1; Units: MEQ/L; Status: F Test: CHLORIDE LEVEL; Value: 110; Range: 98-107; Abnormal: Above high normal; Units: MEQ/L; Status: F Test: CARBON DIOXIDE LEVEL; Value: 24; Range: 21-32; Units: MEQ/L; Status: F Test: ANION GAP; Value: 8; Range: 8-16; Units: MEQ/L; Status: F Test: CALCIUM LEVEL; Value: 8.7; Range: 8.5-10.1; Units: MG/DL; Status: F Test: AST/SGOT; Value: 21; Range: 15-37; Units: U/L; Status: F Test: ALT/SGPT; Value: 34; Range: 12-78; Units: U/L; Status: F Test: ALKALINE PHOSPHATASE; Value: 87; Range: 45-117; Units: U/L; Status: F Test: BILIRUBIN,TOTAL; Value: 0.5; Range: 0.2-1.0; Units: MG/DL; Status: F Test: TOTAL PROTEIN; Value: 7.0; Range: 6.4-8.2; Units: GM/DL; Status: F Test: ALBUMIN; Value: 4.4; Range: 3.2-5.2; Units: GM/DL; Status: F Test: ALBUMIN/GLOBULIN RATIO; Value: 1.69; Range: 1.00-1.93; Status: F Test Note: ; Testing was performed on a lipemic specimen. Suggest recollection of a FASTING specimen for more accurate test results. Lab Order: Urine Culture; SPEC'M 12/06/16 19: Test: URINE CULTURE; Value: URINE CULTURE RESULT NO GROWTH; Status: F Lab Order: URINALYSIS MANUAL; SPEC'M 12/06/16 19: Test: APPEARANCE, URINE MANUAL; Value: CLOUDY; Range: CLEAR; Abnormal: Above high normal; Status: F Test: COLOR, URINE MANUAL; Value: RED; Range: YELLOW; Abnormal: Above high normal; Status: F Test: PH,URINE MAN; Value: 5.0; Range: 5.0 - 9.0; Units: UNITS; Status: F Test: SPECIFIC GRAVITY,URINE MANUAL; Value: 1.030; Range: 1.002-1.035; Status: F Test: PROTEIN, URINE MANUAL; Value: 1+; Range: NEGATIVE; Abnormal: Above high normal; Units: mg/dL; Status: F Test: GLUCOSE, URINE (UA) MANUAL; Value: NEGATIVE; Range: NEGATIVE; Units: mg/dL; Status: F Test: KETONE, URINE MANUAL; Value: NEGATIVE; Range: NEGATIVE; Units: mg/dL; Status: F Test: UROBILINOGEN, URINE MANUAL; Value: NORMAL; Range: NORMAL; Units: mg/dl; Status: F Test: BILIRUBIN, URINE MANUAL; Value: NEGATIVE; Range: NEGATIVE; Status: F Test: NITRITE, URINE MANUAL; Value: NEGATIVE; Range: NEGATIVE; Status: F Test: LEUKOCYTE ESTERASE, URINE MAN; Value: POSITIVE; Range: NEGATIVE; Abnormal: Above high normal; Status: F Test: BLOOD URINE MANUAL; Value: POSITIVE; Range: NEGATIVE; Abnormal: Above high normal; Status: F Lab Order: MICROSCOPIC, URINE; SPEC'M 12/06/16 19: Test: WBC, URINE; Value: 3-5; Range: 0-3; Abnormal: Above high normal; Units: /hpf; Status: F Test: RBC, URINE; Value: 30-40; Range: 0-3; Abnormal: Above high normal; Units: /hpf; Status: F Test: SQUAMOUS EPITHELIAL CELL URINE; Value: SMALL AMOUNT; Range: SMALL AMT; Units: /hpf; Status: F Test: BACTERIA, URINE; Value: NONE SEEN; Range: NONE; Status: F Test: HYALINE CAST, URINE; Value: NONE SEEN; Range: 0-1; Units: /lpf; Status: F Test: MICROSCOPIC EXAM; Status: I Test: MUCUS, URINE; Value: SMALL AMOUNT; Range: NEGATIVE; Abnormal: Above high normal; Status: F Test: MICROSCOPIC EXAM; Value: UNSPUN; Status: F Radiology Order: -US Pelvic Non-Ob Complete Test: -US Pelvic Non-Ob Complete REASON FOR EXAMINATION: Adnexal Pain r/o Torsion; ; Clinical history: bleeding.; Findings: Real-time transabdominal ultrasound images of the pelvis were obtained. An anteverted uteru; s is noted, measuring 10.5 x 5.3 x 6.1 cm. The uterus demonstrates normal echotexture and echogenicit; y. The endometrial stripe measures 10 mm and is within normal limits. The right ovary measures 2.9 x; 1.9 x 1.8 cm. The left ovary measures 3.5 x 2.2 x 3.4 cm. There are two left ovarian cysts, the large; st measuring 2.4 x 1.7 x 1.7 cm. No adnexal masses are seen. Color Doppler flow is seen within both o; varies. There is no evidence of free fluid.; Impression: Left ovarian cyst. Otherwise unremarkable ultrasound examination of the pelvis.; ; Outcome: 21:39 Discharge ordered by Provider. ef1 21:50 Discharge Assessment: Patient awake, alert and oriented x 3. No cognitive and/or ck1 functional deficits noted. Patient verbalized understanding of disposition instructions. patient administered narcotics - no. The following High Risk Discharge criteria are identified: None. Discharged to home ambulatory, with family. Condition: stable. Discharge instructions given to patient, Instructed on discharge instructions, follow up and referral plans. medication usage, Demonstrated understanding of instructions, medications, Pt was receptive of discharge instructions/ teaching. Prescriptions given X 4. Ultrasound Study completed. Property :Personal belongings accompany Pt. 21:51 Patient left the ED. ck1 Signatures: Dispatcher [employer] EDMS Latanya Rose, Reg Reg gb Jamal Sierra RN RN mlb1 Naty Pimentel RN RN ck1 Tere Dawn Erica, PA-C PA-C ef1 Skyla Way AmberRN RN af2 Violet Renae, ANDERSON PRODUCTION ADMINISTRATOR bnb Corrections: (The following items were deleted from the chart) 20:02 19:35 URINALYSIS+LAB sent. af2 EDMD Chart Complete MTDD
== END 2016-12-06 21:51 | disposition home or self-care (01) ==
LOC: M ED 18:43
DX: N94.6 Dysmenorrhea, unspecified (principal); N39.0 Urinary tract infection, site not specified; N83.209 Unspecified ovarian cyst, unspecified side; K21.9 Gastro-esophageal reflux disease without esophagitis; G43.909 Migraine, unspecified, not intractable, without status migrainosus; M05.40 Rheumatoid myopathy with rheumatoid arthritis of unspecified site; F32.9 Major depressive disorder, single episode, unspecified; Z87.891 Personal history of nicotine dependence; Z79.899 Other long term (current) drug therapy; Z88.1 Allergy status to other antibiotic agents; Z88.2 Allergy status to sulfonamides; Z88.8 Allergy status to other drugs, medicaments and biological substances

== ENCOUNTER → 2018-07-11 | Outpatient (CLI) | payer OTHER ==
[2018-07-11 13:05] LABS: FREE T4 0.92 NG/DL (0.76-1.46)
== END ==
LOC: M SMT 08:45
DX: N92.0 Excessive and frequent menstruation with regular cycle (principal)
CPT/HCPCS: 84443

== ENCOUNTER → 2018-08-18 | Outpatient (REF) | payer OTHER, MEDICAID ==
[2018-08-21 14:39] LABS: HPV HYBRID CAPTURE II Negative (Negative)
== END ==
LOC: M LAB REF 08-19 10:15
DX: Z12.4 Encounter for screening for malignant neoplasm of cervix (principal)

== ENCOUNTER → 2018-08-18 | Outpatient (REF) | payer OTHER, MEDICAID | LOC: M LAB REF 19:12 | DX: N92.4 Excessive bleeding in the premenopausal period (principal) ==

== ENCOUNTER 2018-08-20 18:48 | Emergency (ER) | payer OTHER, MEDICAID ==
[2018-08-20 19:40] LABS: BASO % 0.3 % (0.0-1.0); EOS # 0.3 10^3/uL (0.0-0.50); HEMATOCRIT 24.1 % (36.0-47.0); HEMOGLOBIN 7.6 g/dl (12.0-15.5); IMMATURE GRANULOCYTE % 0.3 % (0-3.0); LYMPH # 2.4 10^3/uL (1.5-4.5); LYMPH % 27.8 % (24.0-44.0); MEAN CORPUSCULAR HEMOGLOBIN 25.9 pg (27.0-33.0); MEAN CORPUSCULAR HGB CONC 31.5 g/dl (32.0-36.5); MEAN CORPUSCULAR VOLUME 82.3 fl (80.0-96.0); MONO # 0.7 10^3/uL (0.0-0.8); MONO % 7.8 % (0.0-5.0); NEUTROPHILS # 5.2 10^3/uL (1.8-7.7); NEUTROPHILS % 60.8 % (36.0-66.0); PLATELET COUNT, AUTOMATED 535 10^3/uL (150-450); RED BLOOD COUNT 2.93 10^6/uL (4.00-5.40); RED CELL DISTRIBUTION WIDTH 13.7 % (11.5-14.5); WHITE BLOOD COUNT 8.6 10^3/uL (4.0-10.0)
[2018-08-20 19:53] LABS: ANION GAP 10 MEQ/L (8-16); BLOOD UREA NITROGEN 8 MG/DL (7-18); CALCIUM LEVEL 8.5 MG/DL (8.5-10.1); CARBON DIOXIDE LEVEL 24 MEQ/L (21-32); CHLORIDE LEVEL 108 MEQ/L (98-107); CREATININE FOR GFR 0.74 MG/DL (0.55-1.30); GLOMERULAR FILTRATION RATE > 60.0 (>58); GLUCOSE, FASTING 115 MG/DL (70-100); POTASSIUM SERUM 4.1 MEQ/L (3.5-5.1); SODIUM LEVEL 142 MEQ/L (136-145)
[2018-08-20 21:20] LABS: IMMEDIATE SPIN CROSSMATCH 1 1
== END 2018-08-20 23:54 | disposition home or self-care (01) ==
LOC: M ED 18:48
DX: D64.9 Anemia, unspecified (principal); M06.9 Rheumatoid arthritis, unspecified; F31.9 Bipolar disorder, unspecified; Z79.899 Other long term (current) drug therapy; Z88.1 Allergy status to other antibiotic agents; Z88.2 Allergy status to sulfonamides; Z88.5 Allergy status to narcotic agent; Z88.8 Allergy status to other drugs, medicaments and biological substances
CPT/HCPCS: 80048

== ENCOUNTER 2018-09-10 08:53 | Day surgery (SDC) | payer OTHER ==
[~2018-09-10 08:53] MED LIST: LIDOCAINE 1% MDV 20ML VIAL SQ
[2018-09-10 09:16] LABS: HEMATOCRIT 33.7 % (36.0-47.0); HEMOGLOBIN 10.1 g/dl (12.0-15.5); MEAN CORPUSCULAR HEMOGLOBIN 25.5 pg (27.0-33.0); MEAN CORPUSCULAR VOLUME 85.1 fl (80.0-96.0); PLATELET COUNT, AUTOMATED 428 10^3/uL (150-450); RED BLOOD COUNT 3.96 10^6/uL (4.00-5.40); RED CELL DISTRIBUTION WIDTH 15.8 % (11.5-14.5); WHITE BLOOD COUNT 6.4 10^3/uL (4.0-10.0)
[2018-09-10] MEDS: LR 1,000 ML IV ×3 (09:54→14:30)
[2018-09-10] MEDS: BUPIVACAINE HCL 0.25% 30 ML VIAL As Ordered (11:53)
[2018-09-10] MEDS ORDERED: fentaNYL 250 MCG/5 ML INJECTION (J3010) As Ordered (12:08)
[2018-09-10] MEDS ORDERED: LIDOCAINE 2% INJ 100 MG/5 ML SDV (FOR ANES.) As Ordered (12:08)
[2018-09-10] MEDS ORDERED: HYDROmorphone HCL 2 MG/ML 1ML VIAL (J1170) As Ordered (12:08)
[2018-09-10] MEDS ORDERED: PROPOFOL 200 MG/20 ML VIAL As Ordered (12:08)
[2018-09-10] MEDS ORDERED: dexameTHASONE 4 MG/ML 1ML VIAL (J1100) As Ordered (12:08)
[2018-09-10] MEDS ORDERED: ONDANSETRON 4MG/2ML VIAL (J2405) As Ordered (12:08)
[2018-09-10] MEDS ORDERED: MIDAZOLAM INJ 2 MG/2 ML VIAL (J2250) As Ordered (12:08)
[2018-09-10] MEDS ORDERED: KETOROLAC 60 MG/2 ML VIAL (J1885) As Ordered (12:08)
[2018-09-10] MEDS ORDERED: ROCURONIUM BROMIDE 50 MG/5 ML VIAL As Ordered ×2 (12:08)
[2018-09-10] MEDS ORDERED: NEOSTIGMINE 10 MG/10 ML VIAL (J2710) As Ordered (12:18)
[2018-09-10] MEDS ORDERED: GLYCOPYRROLATE INJ 0.2 MG/ML 2 ML VIAL As Ordered ×3 (12:18)
[2018-09-10] MEDS ORDERED: MORPHINE 4 MG/ML 1ML VIAL/SYRINGE (J2270) IV (14:00)
[2018-09-10] MEDS ORDERED: zolPIDEM TARTRATE 10MG TAB PO (14:00)
[2018-09-10] MEDS ORDERED: PERCOCET 5MG/325MG TAB PO ×2 (14:00)
[2018-09-10] MEDS ORDERED: fentaNYL 100 MCG/2 ML INJECTION (J3010) IV (14:00)
[2018-09-10] MEDS ORDERED: PROMETHAZINE INJ 25 MG/ML VIAL (J2550) IV (14:00)
[2018-09-10] MEDS ORDERED: ONDANSETRON 4MG/2ML VIAL (J2405) IV (14:00)
[2018-09-10] MEDS: KETOROLAC 30 MG/ML VIAL (J1885) IV (18:52)
[2018-09-10] MEDS: ACETAMINOPHEN 500 MG TAB PO (21:25)
[2018-09-11] MEDS: KETOROLAC 30 MG/ML VIAL (J1885) IV ×2 (00:17→06:38)
[2018-09-11 07:31] LABS: HEMATOCRIT 28.2 % (36.0-47.0); HEMOGLOBIN 8.7 g/dl (12.0-15.5); MEAN CORPUSCULAR HEMOGLOBIN 25.9 pg (27.0-33.0); MEAN CORPUSCULAR HGB CONC 30.9 g/dl (32.0-36.5); MEAN CORPUSCULAR VOLUME 83.9 fl (80.0-96.0); PLATELET COUNT, AUTOMATED 403 10^3/uL (150-450); RED BLOOD COUNT 3.36 10^6/uL (4.00-5.40); RED CELL DISTRIBUTION WIDTH 15.9 % (11.5-14.5)
[2018-09-11] MEDS: ACETAMINOPHEN 500 MG TAB PO (09:27)
== END 2018-09-11 09:47 | disposition home or self-care (01) ==
LOC: M SDC 08:53 → M PED 14:34
DX: N93.9 Abnormal uterine and vaginal bleeding, unspecified (principal); N80.0 Endometriosis of uterus; N70.91 Salpingitis, unspecified; I10 Essential (primary) hypertension; E78.5 Hyperlipidemia, unspecified; K21.9 Gastro-esophageal reflux disease without esophagitis; D64.9 Anemia, unspecified; R06.02 Shortness of breath; M12.9 Arthropathy, unspecified; F41.9 Anxiety disorder, unspecified; F32.9 Major depressive disorder, single episode, unspecified; R06.83 Snoring; I34.0 Nonrheumatic mitral (valve) insufficiency; G47.33 Obstructive sleep apnea (adult) (pediatric); E66.9 Obesity, unspecified; R07.9 Chest pain, unspecified; Z88.1 Allergy status to other antibiotic agents; Z88.5 Allergy status to narcotic agent; Z88.8 Allergy status to other drugs, medicaments and biological substances; Z79.899 Other long term (current) drug therapy; Z98.51 Tubal ligation status; Z87.891 Personal history of nicotine dependence; Z82.49 Family history of ischemic heart disease and other diseases of the circulatory system
CPT/HCPCS: 58573